=== PATIENT | female | born 1965 | race Hispanic/Latino ===

== ENCOUNTER 2018-05-16 12:04 | Emergency (ER) | payer OTHER ==
[2018-05-16] MEDS ORDERED: EPINEPHrine 1 MG/ML AMP ONE (12:13)
[2018-05-16] MEDS ORDERED: methylPREDNISolone Sod Succ/PF 125 MG/2 ML VIAL ONE (12:23)
[2018-05-16] MEDS ORDERED: Sodium Chloride For Inhalation 0.9% 3 ML NEB ONE (12:24)
[2018-05-16] MEDS ORDERED: diphenhydrAMINE 50 MG/ML VIAL ONE (12:27)
== END 2018-05-16 15:01 | disposition home or self-care (01) ==
LOC: MADERS 12:04
DX: L50.0 Allergic urticaria (principal); E11.9 Type 2 diabetes mellitus without complications; E66.9 Obesity, unspecified; F17.210 Nicotine dependence, cigarettes, uncomplicated
CPT/HCPCS: 96372; 96374; 96375; J0171; J1200; J2930

== ENCOUNTER 2021-04-18 19:21 | Emergency (ER) | payer OTHER ==
[2021-04-18] MEDS ORDERED: Acetaminophen 500 MG TAB ONE (19:46)
[2021-04-19 23:18] LABS: SARS-CoV-2 PCR by NAA Not Detected (NotDetected)
== END 2021-04-18 20:11 | disposition home or self-care (01) ==
LOC: MADERS 19:21
DX: J06.9 Acute upper respiratory infection, unspecified (principal); Z20.822 Contact with and (suspected) exposure to COVID-19; E11.9 Type 2 diabetes mellitus without complications; E66.9 Obesity, unspecified; F17.210 Nicotine dependence, cigarettes, uncomplicated
CPT/HCPCS: 99283; U0003; U0005

== ENCOUNTER 2021-10-27 13:43 | Emergency (ER) | payer OTHER ==
[2021-10-27] MEDS ORDERED: Acetaminophen 325 MG TAB ONE (15:04)
[2021-10-27] MEDS ORDERED: HYDROcodone/Acetaminophen 5/325 mg Tablet ONE (15:04)
== END 2021-10-27 15:30 | disposition home or self-care (01) ==
LOC: MADERS 13:43
DX: S83.92XA Sprain of unspecified site of left knee, initial encounter (principal); E11.9 Type 2 diabetes mellitus without complications; E66.9 Obesity, unspecified; F17.210 Nicotine dependence, cigarettes, uncomplicated; X58.XXXA Exposure to other specified factors, initial encounter

== ENCOUNTER 2023-07-10 08:34 | Emergency (ER) | payer OTHER ==
[2023-07-10] MEDS ORDERED: Ketorolac Tromethamine 60 MG/2 ML VIAL ONE (09:25)
[2023-07-10 10:01] LABS: Bilirubin Negative (Negative); Blood, Urine Trace (Negative); Clarity Hazy (Clear); Glucose, Urine (Dipstick) 100 mg/dL (Negative); Ketone, Urine Negative (Negative); Leukocyte Negative (Negative); Nitrite Negative (Negative); Protein, Urine (Dipstick) 30 mg/dL (Neg-Trace); Urobilinogen 0.2 mg/dL (Less than 2); pH, Urine 5.5 (5.0-9.0)
[2023-07-10 10:02] LABS: CAUTI Indications for Culture Pelvic or flank pain; Specific Gravity, Urine 1.015 (1.005-1.030)
[2023-07-10 10:06] LABS: RBC/HPF 0-3 HPF (0-3); WBC/HPF 0-3 HPF (0-3)
[2023-07-10 10:07] LABS: Bacteria/HPF 2+ HPF (None Seen); Urine Culture Reflex No No
== END 2023-07-10 10:53 | disposition home or self-care (01) ==
LOC: MADERS 08:34
DX: S29.012A Strain of muscle and tendon of back wall of thorax, initial encounter (principal); E11.9 Type 2 diabetes mellitus without complications; F17.210 Nicotine dependence, cigarettes, uncomplicated; Z79.84 Long term (current) use of oral hypoglycemic drugs; X50.0XXA Overexertion from strenuous movement or load, initial encounter
CPT/HCPCS: 81001; 96372; 99283; J1885

== ENCOUNTER 2024-04-03 10:09 | Emergency (ER) | payer OTHER, SELFPAY ==
[2024-04-03] MEDS ORDERED: Ibuprofen 800 MG TAB ONE (10:58)
[2024-04-03] MEDS ORDERED: Benzonatate 100 MG CAP ONE (10:58)
== END 2024-04-03 11:49 | disposition home or self-care (01) ==
LOC: MADERS 10:09
DX: J06.9 Acute upper respiratory infection, unspecified (principal); E11.9 Type 2 diabetes mellitus without complications; F17.210 Nicotine dependence, cigarettes, uncomplicated
CPT/HCPCS: 87804; 99283

== ENCOUNTER 2024-05-23 15:06 | Emergency (ER) | payer OTHER | END 2024-05-23 16:02 | disposition home or self-care (01) | LOC: MADERS 15:06 | DX: M25.572 Pain in left ankle and joints of left foot (principal); E11.9 Type 2 diabetes mellitus without complications; F17.210 Nicotine dependence, cigarettes, uncomplicated | CPT/HCPCS: 99283 ==

== ENCOUNTER 2024-06-11 09:58 | Emergency (ER) | payer OTHER ==
[2024-06-11 10:32] LABS: #Basophils 0.1 thou/uL (0.0-0.2); #Eosinophils 0.1 thou/uL (0.0-0.7); #Lymphocytes 2.4 thou/uL (1.20-3.40); #Monocytes 0.3 thou/uL (0.11-0.59); #Neutrophils 3.8 thou/uL (1.40-6.50); %Basophils 0.8 % (0.0-1.0); %Eosinophils 2.3 % (0.0-10.0); %Lymphocytes 35.7 % (21.0-51.0); %Monocytes 3.9 % (0.0-10.0); %Neutrophils 57.3 % (42.0-75.0); Hemoglobin 13.3 g/dL (12.0-16.0); Mean Corpuscular HGB CONC 32.5 g/dL (32.0-36.0); Mean Corpuscular Hemoglobin 28.3 pg (27.0-31.0); Mean Platelet Volume 9.2 fL (7.4-10.4); Platelet Count 257 10x3/uL (130-400); RBC Distribution Width 12.3 % (11.5-14.5); Red Blood Cell (RBC) Count 4.71 mill/uL (4.20-5.40); White Blood Cell (WBC) Count 6.6 10x3/uL (4.8-10.8)
[2024-06-11 10:48] LABS: ALT (SGPT) 16 U/L (8-55); AST (SGOT) 15 U/L (5-34); Albumin 3.6 g/dL (3.5-5.0); Alkaline Phosphatase 73 U/L (40-110); Anion Gap 14 mmol/L (10-20); BUN (Urea Nitrogen) 14 mg/dL (9.8-20.1); Bilirubin, Total 0.3 mg/dL (0.2-1.2); Calc. Creatinine Clearance 0 mL/min (70-130); Calcium 9.1 mg/dL (7.8-10.44); Carbon Dioxide 23 mmol/L (22-29); Chloride 107 mmol/L (98-107); Estimated GFR 91; Globulin 3.6 g/dL (2.4-3.5); Glucose 142 mg/dL (70-105); Lipase 44 U/L (8-78); Potassium 3.3 mmol/L (3.5-5.1); Protein, Total 7.2 g/dL (6.0-8.3); Sodium 141 mmol/L (136-145)
[2024-06-11 10:49] LABS: Troponin I Less than 0.010 ng/mL (< 0.028)
[2024-06-11 12:58] LABS: Troponin I Less than 0.010 ng/mL (< 0.028)
== END 2024-06-11 13:11 | disposition home or self-care (01) ==
LOC: MADERS 09:58
DX: R07.89 Other chest pain (principal); F43.0 Acute stress reaction; F41.9 Anxiety disorder, unspecified; F17.210 Nicotine dependence, cigarettes, uncomplicated; E11.9 Type 2 diabetes mellitus without complications
CPT/HCPCS: 71045; 80053; 83690; 84484; 85025; 93005; 94760